=== PATIENT | female | born 1965 | race Caucasian/White ===

== ENCOUNTER 2016-11-24 18:11 | Emergency (ER) | payer OTHER ==
[~2016-11-24] VITALS: Ht 162.6 cm; Wt 77.1 kg
--- NOTE | ~2016-11-24 | EKG ---
[place] [address] [facility] [place] [address] ELECTROCARDIOGRAM REPORT Name: YESENIAPADILLA JOSEPHA [id number] Admission: 11/24/16 Attend Phys: Discharge: 11/24/16 Date of : 65 Report #: [id number] THIS REPORT FOR: //name// [facility] ED Test Date: 2016-11-24 Test Time: 18:44:14 Pat Name: PADILLA PATTERSON Department: Room: Gender: F [employer] In Places Operator: [email or web address] : 1965 Requested By: Krystal Hoffman Order Number: [id number] MD: Prasad Potts Measurements Intervals [place] Rate: 70 P: 17 NM: 165 QRS: -21 QRSD: 101 T: 10 QT: 411 QTc: 444 Interpretive Statements Sinus rhythm Borderline left axis deviation RSR' in V1 or V2, probably normal variant Borderline T abnormalities, anterior leads Compared to ECG 09/13/2016 12:19:28 Anterior T wave abnormality is less pronounced Electronically Signed On 11-25-2016 8:03:55 FIELD AUDITOR by Prasad Potts [email or web address] <ELECTRONICALLY SIGNED> By: Prasad Potts MD, [facility] 11/25/16 0803 1844 1844 Prasad Potts MD, [facility] /EPI
[~2016-11-24 18:11] MED LIST: CARAFATE 1 GM TA1 G1 PO; CLONAZEPAM 1 MG1 M1 PO; FLUOXETINE HCL40 MG PO; HYDROCHLOROTHIA25 M2 PO; LEVOTHYROXIN0.125 M1 PO; LORAZEPAM 2MG TA2 M1 PO; MACROBID 100 M100 M1 PO; NORCO 5-325 TA1 EACH PO; ONDANSETRON HCL4 M2 PO; PHENERGAN 25 MG25 M1 PO; VITAMIN D1000 UNI1 PO
[2016-11-24 19:05] LABS: HEMATOCRIT 35.4 % (37.0-47.0); HEMOGLOBIN 11.9 gm/dL (12.0-15.0); MCH 32.8 pg (26.0-34.0); MCHC 33.5 % (28.0-37.0); MCV 97.9 fL (80.0-100.0); RBC 3.62 mil/uL (4.20-5.00); RDW 14.2 % (10.5-14.5); WBC 3.8 thou/uL (4.0-11.0)
[2016-11-24 19:13] LABS: CALCIUM 8.1 mg/dL (8.5-10.1); CREATININE 0.8 mg/dL (0.6-1.3); POTASSIUM 3.8 mmol/L (3.5-5.1)
[2016-11-24 20:17] VITALS: BP 128/82
[2016-11-24] MEDS ORDERED: NORCO 5-325 TA1 EACH PO (20:17)
== END 2016-11-24 20:18 | disposition home or self-care (01) ==
LOC: ER 18:11
PROVIDERS: Emergency Medicine
DX: R55 Syncope and collapse (principal); S09.90XA Unspecified injury of head, initial encounter; B34.9 Viral infection, unspecified; S01.01XA Laceration without foreign body of scalp, initial encounter; E03.9 Hypothyroidism, unspecified; I10 Essential (primary) hypertension; Z88.0 Allergy status to penicillin; Z88.6 Allergy status to analgesic agent; Z88.8 Allergy status to other drugs, medicaments and biological substances; F10.99 Alcohol use, unspecified with unspecified alcohol-induced disorder; W18.39XA Other fall on same level, initial encounter; Y93.89 Activity, other specified; Y92.89 Other specified places as the place of occurrence of the external cause; Y99.8 Other external cause status

== ENCOUNTER → 2017-05-24 | Outpatient (CLI) | payer OTHER | LOC: RAD 12:51 | DX: M54.5 Low back pain (principal); R07.81 Pleurodynia ==

== ENCOUNTER 2017-06-05 02:57 | Emergency (ER) | payer OTHER ==
[~2017-06-05] VITALS: Ht 157.5 cm; Wt 72.6 kg
[2017-06-05] MEDS ORDERED: PREDNISONE 20 M20 MG PO (03:12)
[2017-06-05] MEDS ORDERED: CLARITIN10 MG PO (03:12)
[2017-06-05] MEDS ORDERED: EPIPEN 2-P0.3 MG/0.3 IM (04:04)
[2017-06-05 04:09] VITALS: BP 119/68
== END 2017-06-05 04:10 | disposition home or self-care (01) ==
LOC: ER 02:57
DX: T78.1XXA Other adverse food reactions, not elsewhere classified, initial encounter (principal); E03.9 Hypothyroidism, unspecified; K58.9 Irritable bowel syndrome, unspecified; I10 Essential (primary) hypertension; Z98.890 Other specified postprocedural states; Z88.8 Allergy status to other drugs, medicaments and biological substances; Z88.0 Allergy status to penicillin; Z88.5 Allergy status to narcotic agent; X58.XXXA Exposure to other specified factors, initial encounter

== ENCOUNTER → 2017-06-16 | Outpatient (CLI) | payer OTHER ==
[~2017-06-16] MED LIST changes: +CLARITIN10 MG PO; +EPIPEN 2-P0.3 MG/0.3 IM; +PREDNISONE 20 M20 MG PO
== END ==
LOC: SLEEPLAB 06-15 09:19
DX: G47.33 Obstructive sleep apnea (adult) (pediatric) (principal)

== ENCOUNTER 2017-08-13 21:03 | Inpatient (IN) | payer OTHER ==
[~2017-08-13] VITALS: Ht 157.5 cm; Wt 75.3 kg
[~2017-08-13 21:03] MED LIST changes: +DOXYCYCLINE 10100 MG PO; +TRAZODONE HCL100 MG PO
[2017-08-13 21:05] VITALS: BP 113/73
[2017-08-13 22:25] LABS: ABSOLUTE NEUTROPHILS 2.6 thou/uL (1.4-8.2); BASOPHILS 1.3 % (0.0-2.0); EOSINOPHILS 4.2 % (0.0-3.0); HEMATOCRIT 34.9 % (37.0-47.0); HEMOGLOBIN 11.6 gm/dL (12.0-15.0); LYMPHOCYTES 29.7 % (24.0-44.0); MANUAL DIFF NO; MCH 30.9 pg (26.0-34.0); MCHC 33.2 g/dL (28.0-37.0); MCV 93.1 fL (80.0-100.0); MONOCYTES 9.7 % (1.0-8.0); PLATELET COUNT 256 thou/uL (150-400); POLYS 55.1 % (36.0-66.0); RBC 3.75 mil/uL (4.20-5.00); WBC 4.7 thou/uL (4.0-11.0)
[2017-08-13 22:36] LABS: CALCIUM 8.8 mg/dL (8.5-10.1); CREATININE 0.9 mg/dL (0.6-1.0)
[2017-08-13 22:40] LABS: POTASSIUM 3.4 mmol/L (3.5-5.1)
[2017-08-13] MEDS ORDERED: CLEOCIN HCL150 MG PO (22:54)
[2017-08-13] MEDS ORDERED: PERCOCET 5-3251 EACH PO (22:57)
[2017-08-13 23:53] VITALS: BP 142/79
[2017-08-14] VITALS: BP 122/85
[2017-08-14] MEDS ORDERED: MELATONIN5 M1 PO (00:51)
[2017-08-14] MEDS ORDERED: HALCION0.25 MG PO (00:52)
[2017-08-14 04:00] VITALS: BP 92/55
[2017-08-14 07:10] VITALS: BP 78/55
[2017-08-14 16:00] VITALS: BP 101/61
[2017-08-14 19:51] VITALS: BP 119/68
[2017-08-15 04:54] VITALS: BP 104/72
[2017-08-15 06:05] LABS: HEMATOCRIT 36.6 % (37.0-47.0); HEMOGLOBIN 11.9 gm/dL (12.0-15.0); MCHC 32.6 g/dL (28.0-37.0); RBC 3.85 mil/uL (4.20-5.00); RDW 16.2 % (10.5-14.5); WBC 4.4 thou/uL (4.0-11.0)
[2017-08-15 06:24] LABS: CALCIUM 9.1 mg/dL (8.5-10.1); CREATININE 1.2 mg/dL (0.6-1.0)
[2017-08-15 07:30] VITALS: BP 93/57
[2017-08-15 16:00] VITALS: BP 77/51
[2017-08-15 20:06] VITALS: BP 112/73
[2017-08-16 05:58] VITALS: BP 115/69
[2017-08-16 07:14] VITALS: BP 110/69
[2017-08-16 16:02] VITALS: BP 110/59
[2017-08-16] MEDS ORDERED: MS CONTIN 30 MG30 M1 PO (16:15)
[2017-08-16] MEDS ORDERED: OXYCODONE HCL 55 MG PO (16:16)
[2017-08-16 19:13] VITALS: BP 97/51
[2017-08-16 19:16] VITALS: BP 115/67
[2017-08-17 03:11] VITALS: BP 105/77
[2017-08-17 08:18] VITALS: BP 115/79
[2017-08-17 10:46] VITALS: BP 115/79
[2017-08-29] MEDS ORDERED: BUSPIRONE HCL10 MG PO (10:05)
[2017-08-30] MEDS ORDERED: SEROQUEL 50 MG50 MG PO (19:04)
== END 2017-08-17 14:35 | disposition home health service (06) | DRG 603 ==
LOC: ER 21:03 → EROBS 23:31 → 4S 23:31
PROVIDERS: Internal Medicine; Nurse Practitioner Family
PROC: 02HV33Z Insertion of Infusion Device into Superior Vena Cava, Percutaneous Approach (ICD-10-PCS; principal; 2017-08-16)
DX: L03.114 Cellulitis of left upper limb (principal); N17.9 Acute kidney failure, unspecified; I10 Essential (primary) hypertension; J45.909 Unspecified asthma, uncomplicated; E01.0 Iodine-deficiency related diffuse (endemic) goiter; F32.9 Major depressive disorder, single episode, unspecified; E03.9 Hypothyroidism, unspecified; Z88.6 Allergy status to analgesic agent; Z88.0 Allergy status to penicillin; Z88.8 Allergy status to other drugs, medicaments and biological substances; W54.0XXA Bitten by dog, initial encounter; Y93.89 Activity, other specified; Y92.89 Other specified places as the place of occurrence of the external cause; Y99.8 Other external cause status; Z79.899 Other long term (current) drug therapy
CPT/HCPCS: 10195; 27000

== ENCOUNTER → 2018-02-02 | Outpatient (CLI) | payer OTHER ==
[~2018-02-02] VITALS: Ht 160 cm; Wt 76.2 kg
[~2018-02-02] MED LIST changes: +BUSPIRONE HCL10 MG PO; +CLEOCIN HCL150 MG PO; +DULERA 100 MCG/13 GM INH; +HALCION0.25 MG PO; +HYDROCODONE-IB1 EAC3 PO; +LEVOXYL25 MCG PO; +MELATONIN5 M1 PO; +MS CONTIN 30 MG30 M1 PO; +NORFLEX100 MG PO; +OXYCODONE HCL 55 MG PO; +PERCOCET 5-3251 EACH PO; +SEROQUEL 50 MG50 MG PO; +TOPAMAX 100 MG100 MG PO; +VENTOLIN HFA 1818 GM INH
--- NOTE | ~2018-02-02 | P ---
[facility] [place] [address] PROCEDURE REPORT Name: PADILLA PATTERSON Room #: REG [facility]#: [id number] Admission: 02/02/18 Attend Phys: Jeremiah Arrington MD Discharge: Date of : 65 Report #: [id number] THIS REPORT FOR: //name// CC: Jeremiah Lewis MD BRIEF HISTORY: The patient is a 52-year-old woman with long-standing history of reflux disease with Sarthak fundoplication done x 2 in the past. She continued to have reflux type symptoms and takes Nexium. She describes intermittent solid-food dysphagia. She has bouts of nausea and vomiting. It is noted she does use hydrocodone daily. She also recently had an episode of hematemesis. In addition, she does use ibuprofen generally on a daily basis. PREOPERATIVE DIAGNOSES: Hematemesis, vomiting, reflux and abdominal pain. POSTOPERATIVE DIAGNOSES: 1. Modest diffuse antral gastritis. 2. Small hiatus hernia. 3. Surgical changes consistent with hernia repair. 4. Dysphagia. MEDICATIONS: Deep sedation with propofol per Anesthesia. SPECIMEN: 1. Small bowel biopsies to rule out celiac disease. 2. Biopsies of gastritis. ESTIMATED BLOOD LOSS: 3 mL PROCEDURE: EGD with biopsy, Meyer dilation. FINDINGS: Prior to propofol sedation, procedure of upper endoscopy was discussed with the patient as well as potential risks and its complications. She indicates she understands and desires to proceed. DESCRIPTION OF PROCEDURE: With the patient in left lateral decubitus position, Fuji video endoscope was inserted in the cervical esophagus under direct vision without difficulty. Examination of this organ through its entire length revealed normal esophageal mucosa down the squamocolumnar junction. Squamocolumnar junction was inspected and noted to be intact. There were no ulcers, erosions or Blas mucosa. Scope was advanced and about a 3 cm sliding type hiatus hernia was encountered. The mucosa and hernia was intact. No ulcers or erosions were seen. The scope was advanced fully into the stomach, was examined on end view as well as retroflexed views. There was modest diffuse erythema throughout the antrum. She does use nonsteroidals, but I do not see ulcers or erosions. Upon retroflexion, surgical changes from previous hiatus [facility] [address] [place] [address] PROCEDURE REPORT Name: PADILLA PATTERSON [facility] [id number] Admission: 02/02/18 Attend Phys: Jeremiah Arrington MD Discharge: Date of : 65 Report #: [id number] hernia were identified. In addition, I might point out that there was no obvious stricture or obstruction of the GE junction. The pylorus, duodenal bulb and postbulbar sweep were inspected and noted unremarkable. At that point, scope was withdrawn and careful circumferential views confirmed the above finding. Biopsies obtained of the small bowel to evaluate for celiac disease. She does report periods of diarrhea. Also, biopsy of the gastritis were obtained. Subsequently, she was dilated with passage of 50-Greenlandic Meyer dilator. There was no resistance. CONDITION OF THE PATIENT UPON DISCHARGE: Following the procedure, the patient was drowsy and prepared for colonoscopy. INSTRUCTIONS TO THE PATIENT AND FAMILY AT THE TIME OF DISCHARGE: Suggest she use her Nexium once or twice daily to control reflux symptoms, we can dilate her on an as-needed basis with regard to symptoms of dysphagia. I do not see any ulcers. She needs to be cautious with use of nonsteroidals. As far as hematemesis, I do not see any bleeding sites. She may have had trauma at the GE junction with vomiting, but I do not see any worrisome lesions at this time. As for her nausea and vomiting, I suspect hydrocodone is playing a significant role in that problem and we will discuss with the patient. Proceed with colonoscopy at this time. If symptoms do not resolve, she should followup in the office with her nurse practitioner. <ELECTRONICALLY SIGNED> By: Jeremiah Arrington MD 02/03/18 1201 0753 0822 Jeremiah Arrington MD /nt
--- NOTE | ~2018-02-02 | P ---
[facility] [place] [address] PROCEDURE REPORT Name: PADILLA PATTERSON Room #: REG [facility].#: [id number] Admission: 02/02/18 Attend Phys: Jeremiah Arrington MD Discharge: Date of : 65 Report #: [id number] THIS REPORT FOR: //name// CC: Jeremiah Lewis MD BRIEF HISTORY: The patient is a 52-year-old woman with a history of colon polyps. She was previously treated at another facility and reports 3 years ago she had multiple colonoscopies in a year with removal of polyps. She reports that she believes she had at least 12 polyps removed. 2 years ago, she had another colonoscopy by my associate at another facility and a 1 cm serrated adenomas removed from the cecum. If those numbers are correct, she has had greater than 10 polyps lifetime. She recently had an episode of rectal bleeding with dark blood per rectum. PREOPERATIVE DIAGNOSES: 1. Rectal bleeding 2. History of colon polyps. POSTOPERATIVE DIAGNOSES: Moderate left-sided diverticulosis coli. MEDICATIONS: Deep sedation with propofol per Anesthesia. SPECIMEN: None. ESTIMATED BLOOD LOSS: None. PROCEDURE: Colonoscopy to cecum and terminal ileum. FINDINGS: Prior to propofol sedation, procedure of colonoscopy discussed with the patient as well as potential risks and its complications. She indicates she understands and desires to proceed. DESCRIPTION OF PROCEDURE: With the patient in left lateral decubitus position, digital examination was completed which revealed no abnormalities. Subsequently, the Vidyo video colonoscope was introduced in the rectum, advanced under direct vision to the cecum. It was done with minimal difficulty. The cecum was identified by the ileocecal valve and the appendiceal orifice. I was able to visualize the distal segment of the terminal ileum, which was inspected and noted to be unremarkable. At that point, scope was withdrawn and careful circumferential views obtained including retroflexing the scope in the ascending colon. Upon slow withdrawal of the scope, the prep was noted to be good. Mucosa within normal limits, normal vascular pattern, normal light reflex. As we withdrew the scope through the colon, there were no neoplastic lesions identified at any time during this examination. Also, inflammatory changes were not seen. Bleeding lesions were not seen. The mucosa was normal throughout the [address] [address] PROCEDURE REPORT Name: PADILLA PATTERSON Room #: REG [facility].#: [id number] Admission: 02/02/18 Attend Phys: Jeremiah Arrington MD Discharge: Date of : 65 Report #: [id number] colon. In the proximal ascending colon, a tattoo was seen and a scar was seen near the tattoo representing previous polypectomy site. There is no evidence of residual polyp tissue at that site. No other scars or tattoos were seen during examination. However, she has noted to have moderately severe diverticular disease of the left colon without endoscopic evidence of diverticulitis. The scope was withdrawn in the rectum and upon retroflexion, no abnormalities were seen. Scope was withdrawn. The patient tolerated the procedure well. CONDITION OF THE PATIENT UPON DISCHARGE: Following procedure, the patient is drowsy, arousable, conversant and will be discharged home when fully ambulatory. INSTRUCTIONS TO THE PATIENT AND FAMILY AT THE TIME OF DISCHARGE: I do not have complete information at this time, but the patient does give a history of a high polyp count. We will try to verify that and try to obtain records from [place] and review previous colonoscopies and pathology reports. If she does indeed have a history of greater than 10 neoplastic polyps lifetime, genetic counseling, potential genetic testing may be indicated. I might point out there is no family history of colon cancer. As for the rectal bleeding, I do not see any obvious bleeding lesions. Please see upper endoscopy report as well. Have her call if she has any further episodes of bleeding. At this point in time, I would suggest a followup colon exam in 3 years due to her history of multiple colon polyps in the past. Last colonoscopy was 2 years ago. Withdrawal time from the cecum was 13 minutes. <ELECTRONICALLY SIGNED> By: Jeremiah Arrington MD 02/03/18 1201 0822 0850 Jeremiah Arrington MD /nt
--- NOTE | ~2018-02-02 | S ---
[facility] [place] [address] SURGICAL PATH RPT PROCEDURE Name: PADILLA PATTERSON Room #: REG [facility].#: [id number] Admission: 02/02/18 Date of : 65 Discharge: Report #: [id number] Path Case #: [id number] PATHOLOGY REPORT COLLECTION DATE: 02/02/2018 RECEIVED DATE: 02/02/2018 SUBMITTING PHYS: Dr. Jeremiah Arrington OTHER PHYS: Dr. Octaviano Lewis SPECIMEN(S) RECEIVED: A.Biopsy small bowel B.Biopsy gastritis * * * * * * * * * * * * FINAL DIAGNOSIS: A. Small bowel mucosa, rule out celiac, endoscopic biopsy: - No significant diagnostic abnormalities present. - Negative for villous blunting or increase in intraepithelial lymphocytes. B. Gastric mucosa, gastritis, endoscopic biopsy: - Moderate reactive gastropathy. - Negative for intestinal metaplasia or atrophy. - Negative for Helicobacter pylori. COMMENT: Well-controlled Helicobacter pylori immunohistochemical stain performed on block B1-negative. (IUV:mgr; 02/03/2018) PATHOLOGIST: Lauryn Nash M.D. REPORT ELECTRONICALLY SIGNED BY: Lauryn Nash M.D. DATE/TIME: 02/03/2018 15:14 * * * * * * * * * * * * GROSS PATHOLOGY: A. Received in formalin labeled "Padilla Patterson, small bowel biopsy rule out celiac" is a 1.5 x 0.5 x 0.2 cm aggregate of pink-leung soft tissue. The specimen is submitted entirely in cassette A1. B. Received in formalin labeled "Padilla Patterson, biopsy gastritis" is a 0.9 x 0.7 x 0.2 cm aggregate of pink-leung soft tissue. The specimen is submitted entirely in cassette B1. ([facility] [place]; 02/02/2018) CLINICAL HISTORY: Abdominal pain, coffee ground emesis, rectal bleed, gastritis, hiatal [facility] [address] [place] [address] SURGICAL PATH RPT PROCEDURE Name: PADILLA PATTERSON Room #: REG [facility].#: [id number] Admission: 02/02/18 Date of : 65 Discharge: Report #: [id number] Path Case #: [id number] hernia. INITIAL CPT CODE(S): A; 53516 B; 11889, 10183 Professional services performed by [facility] at [address], [place] [address] Technical services performed by [facility] at [address] [place] [address], [facility] [address] [address]. [facility] [place] [address] PHONE: [phone] DIRECTOR: Luis E Hicks M.D. * * * END OF REPORT * * *
== END | disposition home or self-care (01) ==
LOC: GI 06:30
DX: K57.30 Diverticulosis of large intestine without perforation or abscess without bleeding (principal); K31.9 Disease of stomach and duodenum, unspecified; K44.9 Diaphragmatic hernia without obstruction or gangrene; K92.0 Hematemesis; R13.19 Other dysphagia; I10 Essential (primary) hypertension; E03.9 Hypothyroidism, unspecified; J45.909 Unspecified asthma, uncomplicated; G43.909 Migraine, unspecified, not intractable, without status migrainosus; F41.8 Other specified anxiety disorders; Z86.010 Personal history of colon polyps; F31.9 Bipolar disorder, unspecified; Z88.0 Allergy status to penicillin; Z79.891 Long term (current) use of opiate analgesic; Z88.8 Allergy status to other drugs, medicaments and biological substances; Z87.891 Personal history of nicotine dependence; Z98.890 Other specified postprocedural states; Z79.899 Other long term (current) drug therapy
CPT/HCPCS: 62110; 62900

== ENCOUNTER → 2018-02-17 | Outpatient (CLI) | payer OTHER ==
[~2018-02-17] MED LIST changes: -NORFLEX100 MG PO
== END ==
LOC: RAD 09:22
DX: Z12.31 Encounter for screening mammogram for malignant neoplasm of breast (principal)

== ENCOUNTER 2018-04-09 21:55 | Emergency (ER) | payer OTHER ==
[~2018-04-09] VITALS: Ht 157.5 cm; Wt 79.4 kg
[2018-04-09] MEDS ORDERED: NORFLEX100 MG PO (23:27)
== END 2018-04-10 00:13 | disposition home or self-care (01) ==
LOC: ER 21:55
DX: S09.8XXA Other specified injuries of head, initial encounter (principal); E03.9 Hypothyroidism, unspecified; I10 Essential (primary) hypertension; J45.909 Unspecified asthma, uncomplicated; E06.3 Autoimmune thyroiditis; F32.9 Major depressive disorder, single episode, unspecified; F41.9 Anxiety disorder, unspecified; Z88.8 Allergy status to other drugs, medicaments and biological substances; Z88.0 Allergy status to penicillin; Z88.5 Allergy status to narcotic agent; W22.8XXA Striking against or struck by other objects, initial encounter; Y93.89 Activity, other specified; Y92.89 Other specified places as the place of occurrence of the external cause; Y99.8 Other external cause status